=== PATIENT | female | born 1995 | race Caucasian/White ===

== ENCOUNTER 2017-04-01 22:53 | Emergency (ER) | payer MEDICAID ==
[2017-04-01] MEDS ORDERED: KETOROLAC TROMETHAMINE 60 MG/2 ML VIAL IM ONE ×2 (23:09→23:10)
[2017-04-01] MEDS ORDERED: AMOXICILLIN TRIHYDRATE 250 MG CAPSULE PO ONE ×2 (23:10)
[2017-04-01] MEDS ORDERED: AMOXICILLIN TRIHYDRATE 250 MG CAPSULE ONE (23:17)
--- OUTSIDE RECORDS SUMMARY | 2017-04-01 23:25 | XMS REPORT | Continuity of Care Document ---
:1995 Author Organization [facility] ([facility]) Address [address] [place] [address] Phone [phone] Care Team Providers Name Role Phone Adryan Arrington Primary Care Provider [phone] Source Comments This disclosure is being made pursuant to the Care Everywhere program, applicable federal and state laws, and may not contain all informaitonavailable regarding this patient.[facility] ([facility]) Active Allergies and Adverse Reactions No Known Allergies Current Medications Prescription Sig. Disp. Refills Start Date End Date Status pantoprazole 40 mg Take 1 Tab by mouth 30 Tab 11 07/21/2011 Active EC tablet daily. Indications: Gastroesophageal Reflux Active Problems Problem Noted Date Abdominal pain, generalized 12/22/2011 Obesity (BMI 30-39.9) 12/22/2011 GERD (gastroesophageal reflux disease) 07/21/2011 Social History Tobacco Use Types Packs/Day Years Used Date Never Smoker Smokeless Tobacco: Never Used Last Filed Vital Signs Vital Sign Reading Time Taken Blood Pressure 128/67 12/22/2011 3:19 PM [employer] Pulse 65 12/22/2011 3:19 PM [employer] Temperature 35.9 C (96.6 F) 12/22/2011 3:19 PM [employer] Respiratory Rate 16 12/22/2011 3:19 PM [employer] Height 1.573 m (5' 1.93") 12/22/2011 3:19 PM [employer] Weight 82.6 kg (182 lb 1.6 oz) 12/22/2011 3:19 PM [employer] Body Mass Index 33.38 12/22/2011 3:19 PM [employer] Oxygen Saturation - - Plan of Care Health Maintenance Due Date Last Done Comments Hepatitis B Vaccine (1 of 3 - Primary Series) 1994 HPV Vaccine (1 of 3 - Female/Unknown 3 Dose Series) 2005 Tdap Vaccine 2005 Cervical Cancer Screening 2012 Lipid Disorder Screening 2012 MMR Vaccine 2012 Td Vaccine 2012 Varicella Vaccine (1 of 2 - Adult - No Evidence of 2012 Immunity) Influenza Vaccine: Seasonal (#1) 05/26/2016 Results from Last 3 Months Not on file
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
[2017-04-01 23:26] VITALS: BP 132/82
--- NOTE | 2017-04-02 00:07 | ERNOTE ---
ENT HPI Presenting Symptoms: other - ear pain Time Seen by Provider: 04/01/17 23:04 Source: patient Exam Limitations: no limitations - Immun/Allergies/Home Medications Immunizations: IMMUNIZATION HX Immunizations Up to Date Yes History of Influenza Vaccine Yes Hx Pneumococcal Vaccination No Allergies/Adverse Reactions: Allergies Allergy/AdvReac Type Severity Reaction Status Date / Time No Known Allergies Allergy Verified 12/17/15 19:43 Home Medications: HOME MEDICATIONS Ibuprofen [Motrin] 200 - 800 mg PO Q6H PRN #100 tab 01/26/16 [Last Taken Unknown ] Amoxicillin 875 mg PO BID #20 tablet 04/01/17 [Last Taken Unknown] Diclofenac Potassium 50 mg PO TID PRN 04/01/17 [Last Taken Unknown] Medroxyprogesterone Acetate [Depo-Provera] 400 mg IM 04/01/17 [Last Taken Unknown] Tramadol HCl [Rybix Odt] 50 mg PO TID PRN 04/01/17 [Last Taken Unknown] - History of Present Illness Narrative: mild left ear pain last night and then worsening tonight. Severity: Present: moderate, severe ENT Location: Present: ear (L) Prearrival Treatment: Present: no prearrival treatment Associated Symptoms - ENT: Denies: cough, nasal congestion/drainage Review of Systems - Review of Systems Constitutional: Absent: recent illness, fever, chills ENT: Present: See HPI. Absent: nose congestion, nasal drainage Respiratory: Absent: cough Cardiology: Present: no symptoms reported Gastrointestinal/Abdominal: Present: no symptoms reported - Patient's Past Medical History Patient History - Medical: Migraines Patient History - Cardiac/Respiratory: No pertinent hx Patient History - Cancer: No Hx of Cancer Patient History - Surgical Procedures: No surgical history Patient History - Other: None LMP (females 10-50): other - Family History Mother Family History - Medical: Family History - Cardiac/Respiratory: No pertinent hx - Social History Living Situations: significant other Abuse History: No History of abuse Psych History: No pertinent hx Smoking Status: Never smoker Do you dip or chew tobacco: No Alcohol Use: none Drug Use: none - Immunizations Immunizations Up to Date: Yes Hx Pneumococcal Vaccination: No History of Influenza Vaccine: Yes Physical Exam - Physical Exam General Appearance: Present: wd/wn, alert Ears, Nose, Throat: Present: abnormal TM (L) - red, bulging, tonsillar swelling - not erythematous Neck: Present: normal inspection, nontender Respiratory: Present: no respiratory distress, no accessory muscle use Neurological Exam: Present: alert, oriented, normal mood/affect Skin Exam: Present: normal color, warm/dry ED Progress - Vital Signs Vital Signs: Vital Signs 04/01/17 22:56 Temperature 36.6 C Pulse Rate 78 Respiratory 14 Rate Blood Pressure 139/80 O2 Sat by Pulse 98 Oximetry - Progress/Reassessment Chief Complaint: Earache Departure Clinical Impression: Otitis media Qualifiers: Otitis media type: suppurative Chronicity: acute Laterality: left Recurrence: not specified as recurrent Spontaneous tympanic membrane rupture: without spontaneous rupture Qualified Code(s): H66.002 - Acute suppurative otitis media without spontaneous rupture of ear drum, left ear - Departure Disposition: Home self-care Condition: Good Instructions: Otitis Media, Adult, [id number] Referrals: Diana Varela DO [Primary Care Provider] - Prescriptions: Amoxicillin 875 mg PO BID #20 tablet
== END 2017-04-01 23:20 | disposition home or self-care (01) ==
LOC: ER 22:53
DX: H66.002 Acute suppurative otitis media without spontaneous rupture of ear drum, left ear (principal)